=== PATIENT | male | born 1985 | race Two or more races ===

== ENCOUNTER 2024-06-30 17:27 | Emergency (ER) | payer OTHER ==
[~2024-06-30] VITALS: Ht 175.3 cm; Wt 79.8 kg
[2024-06-30] MEDS ORDERED: LIDOCAINE 1% INJ 50 ML MDV IJ ONE (18:21)
[2024-06-30] MEDS ORDERED: TDAP [DIPH/PERTUSSIS/TET] 0.5 ML VIAL IM ONE (18:22)
[2024-06-30] MEDS: LIDOCAINE HCL/PF 1% 30 ML VIAL TP ONE (18:26)
[2024-06-30] MEDS: TDAP [DIPH/PERTUSSIS/TET] 0.5 ML VIAL IM ONE (18:26)
[2024-06-30 19:12] VITALS: BP 110/70; TEMP 98.4; O2SAT 99
== END 2024-06-30 19:13 | disposition home or self-care (01) ==
LOC: ER 17:33
DX: S01.81XA Laceration without foreign body of other part of head, initial encounter (principal); W22.8XXA Striking against or struck by other objects, initial encounter; Y93.73 Activity, racquet and hand sports; Y92.39 Other specified sports and athletic area as the place of occurrence of the external cause; Y99.8 Other external cause status
CPT/HCPCS: 12011; 90471; 90715; 99283; J3490